=== PATIENT | male | born 1930 | race Two or more races ===

== ENCOUNTER 2017-01-27 21:38 | Inpatient (IN) | payer MEDICARE, OTHER ==
[~2017-01-27] VITALS: Ht 172.7 cm; Wt 91.2 kg
[~2017-01-27 21:38] MED LIST: ASPI81TA2 PO; CARV6.25 PO; ESOM40CA PO; GLIP5TAB3 PO; HUM10VIA5 SQ; LISI5TAB45 PO; MONT10TA22 PO; VALS1TAB4 PO
--- NOTE | 2017-01-27 22:40 | NUR ---
PT BIB FAMILY. SENT BY PMD FOR HIGH BS, BS 313. WOUND AND WEAKNESS. PT AOX3 TRINIDADIAN SPEAKING. FAMILY AT BEDSIDE TO TRANSLATE. RR EVEN AND UNLABORED. NO SOB NOTED. NAD NOTED. NO NVD AT THIS TIME. PT GOWNED AND PLACED ON MONITOR WAITING FOR MD ONEILL.
[2017-01-27 23:18] LABS: BASOPHILS % (AUTO) 0.5 % (0.0-2.0); EOSINOPHILS # (AUTO) 0.1 /CMM (0.0-0.7); EOSINOPHILS % (AUTO) 1.1 % (0.0-6.0); HEMATOCRIT 37 % (39-51); HEMOGLOBIN 12.3 g/dL (13.5-17.5); LYMPHOCYTES # (AUTO) 2.3 /CMM (0.8-4.8); LYMPHOCYTES % (AUTO) 22.4 % (20.0-44.0); MEAN CORPUSCULAR HEMOGLOBIN 31 PG (26.0-33.0); MEAN CORPUSCULAR HGB CONC 33 g/dl (31.0-36.0); MEAN CORPUSCULAR VOLUME 93 fL (80-96); MONOCYTES # (AUTO) 0.6 /CMM (0.1-1.30); MONOCYTES % (AUTO) 5.8 % (2.0-12.0); NEUTROPHILS # (AUTO) 7.3 /CMM (1.8-8.9); NEUTROPHILS % (AUTO) 70.2 % (43.0-81.0); PLATELET COUNT (AUTO) 170 /CMM (150-450); RDW COEFFICIENT OF VARIATION 14.2 (11.5-15.0); RED BLOOD CELL COUNT(AUTO) 4.01 MIL/uL (4.5-6.0); WHITE BLOOD COUNT (AUTO) 10.4 K/uL (4.3-11.0)
[2017-01-27 23:27] LABS: CALCIUM, SERUM 9.4 mg/dL (8.5-10.1); CARBON DIOXIDE 30 mmol/L (21-32); CHLORIDE 107 mmol/L (98-107); GLUCOSE 348 mg/dL (74-106); POTASSIUM 4.2 mmol/L (3.5-5.1); SODIUM SERUM 146 mmol/L (136-145); UREA NITROGEN, BLOOD 31 mg/dL (7-18)
[2017-01-27 23:30] LABS: INR 0.93 (0.87-1.13); PROTHROMBIN TIME 9.7 SECS (9.5-12.7)
[2017-01-27 23:33] LABS: TROPONIN I < 0.017 ng/mL (0.00-0.056)
--- NOTE | 2017-01-27 23:34 | NUR ---
PT TO CT.
--- NOTE | 2017-01-27 23:39 | NUR ---
CRITICAL LAB. LACTIC ACID 2.9
[2017-01-27 23:41] LABS: ALANINE AMINOTRANSFERASE 18 U/L (12-78); ALBUMIN 3.2 g/dL (3.4-5.0); ALKALINE PHOSPHATASE 118 U/L (46-116); ASPARTATE AMINOTRANSFERASE 11 U/L (15-37); BILIRUBIN,DIRECT 0.1 mg/dL (0.0-0.2); BILIRUBIN,TOTAL 0.2 mg/dL (0.2-1.0); TOTAL PROTEIN, SERUM 7.5 g/dL (6.4-8.2)
[2017-01-28] MEDS ORDERED: INSULIN REGULAR, HUMAN 100 UNIT/ML 3 ML VIAL IV ONE
--- NOTE | 2017-01-28 | NUR ---
PT RETURNED FROM CT.
[2017-01-28] MEDS ORDERED: INSULIN REGULAR, HUMAN 100 UNIT/ML 10 ML VIAL ONE (00:04)
[2017-01-28] MEDS ORDERED: CARV12.5 PO (00:14)
[2017-01-28] MEDS ORDERED: AMLO5TAB4 PO (00:14)
[2017-01-28] MEDS ORDERED: DUTA0.5C PO (00:14)
[2017-01-28] MEDS ORDERED: ROSU40TA PO (00:14)
[2017-01-28] MEDS ORDERED: FURO-144 PO (00:14)
[2017-01-28] MEDS ORDERED: TRAM50TA2 PO (00:14)
[2017-01-28] MEDS ORDERED: DOCU-25 PO (00:14)
[2017-01-28] MEDS ORDERED: FOLI1TAB16 PO (00:14)
[2017-01-28] MEDS ORDERED: TAMS-12 PO (00:14)
[2017-01-28] MEDS ORDERED: POTA8TAB8 PO (00:14)
[2017-01-28] MEDS ORDERED: CLON0.1T PO (00:14)
[2017-01-28] MEDS ORDERED: LINA5TAB PO (00:14)
--- NOTE | 2017-01-28 00:19 | NUR ---
ORDERS RECEIVED BY [employer] [facility]ANTONIO. PT ASSIGNED TO TEL [phone]
--- NOTE | 2017-01-28 00:26 | NUR ---
UNABLE TO GET URINE AT THIS TIME. DR CERDA MADE AWARE
--- NOTE | 2017-01-28 00:32 | NUR ---
REPORT GIVEN TO KWAN NEWMAN FOR CINDI.
--- NOTE | 2017-01-28 00:32 | NUR ---
ENDORSE TO RN TRENT TO COLLECT URINE.
[2017-01-28] MEDS ORDERED: LORAZEPAM INJ 2 MG/ML VIAL ONE ×2 (00:35→02:21)
[2017-01-28 00:45] VITALS: BP 147/70
--- NOTE | 2017-01-28 00:49 | NUR ---
PT TRANSPORTED TO [facility] BED 322-2 VIA GURNEY PER ACLS PROTOCOL.
--- NOTE | 2017-01-28 00:50 | NUR ---
ANALYSIS SPECIALIST INITIAL NOTES PT WAS TRANSFERRED FROM ER VIA FAMILY CAROL AT BEDSIDE TO TRANSLATE. PT IS BELARUSIAN AND BELGIAN SPEAKING ONLY. PT IS COMBATIVE AND UNCOOPERATIVE. REMOVING IVS, DIAPER AND BLANKETS. REFUSING TELE MONITOR. SITTER IS NEEDED BUT UNAVAILABLE. FAMILY IS AWARE OF SITUATION AND STATES THAT HE GETS EXTREMELY CONFUSED AND AGITATED AT NIGHT. PT IS BREATHING EVENLY AND UNLABORED ON RA, SATING WELL. BED IS IN LOW AND LOCKED POSITION, BED ALARM ON.
[2017-01-28 01:00] VITALS: BP 147/70
[2017-01-28] MEDS ORDERED: LORAZEPAM INJ 2 MG/ML VIAL IV ONE (01:00)
[2017-01-28 01:25] LABS: MAGNESIUM 1.9 mg/dL (1.8-2.4)
[2017-01-28] MEDS ORDERED: DEXTROSE 50%-WATER 50 ML DISP.SYRIN IV PRN (01:30)
[2017-01-28 01:38] LABS: THYROID STIMULATING HORMONE 2.819 uIU/mL (0.358-3.74)
--- NOTE | 2017-01-28 01:40 | NUR ---
DR WAS PAGED REGARDING PTS CONSISTENT AGITATION. 1MG ATIVAN Q8 WAS ORDERED
[2017-01-28] MEDS: LORAZEPAM INJ 2 MG/ML VIAL IV PRN (02:24)
--- NOTE | 2017-01-28 03:00 | NUR ---
PT CONTINUES TO BE RESTLESS AND AGITATED. REDIRECTION, REDUCTION OF STIMULI AND DISTRACTION WAS ATTEMPTED BUT PT CONTINUE TO ATTEMPT TO PULL OUT HIS IV AND IS REFUSING CARE
[2017-01-28 04:00] VITALS: BP 104/73
--- NOTE | 2017-01-28 06:09 | NUR ---
PAGED FOR RESTRAINTS, PT CONTINUES TO ATTEMPT TO REMOVE IV AND IS UNCOOPERATIVE AND RESTLESS. SOFT WRIST RESTRAINTS APPLIED. WILL CONTINUE TO MONITOR
[2017-01-28] MEDS: BLOOD SUGAR DIAGNOSTIC 1 EACH STRIP VI SCH ×4 (06:19→22:04)
[2017-01-28] MEDS: INSULIN REGULAR, HUMAN 100 UNIT/ML 3 ML VIAL SQ PRN ×3 (06:24→18:15)
--- NOTE | 2017-01-28 06:53 | NUR ---
MS RN CLOSING NOTES PT IS NOW IN RESTRAINTS, APPEARS CALM. BLOOD SUGAR IS 253- [phone] WERE GIVEN. BED IS IN LOW AND LOCKED POSITION, CALL LIGHT WITHIN REACH. BED ALARM IS ON. WILL ENDORSE TO DAY SHIFT.
[2017-01-28 07:12] LABS: BASOPHILS % (AUTO) 0.3 % (0.0-2.0); EOSINOPHILS # (AUTO) 0.1 /CMM (0.0-0.7); EOSINOPHILS % (AUTO) 1.4 % (0.0-6.0); HEMATOCRIT 38 % (39-51); HEMOGLOBIN 12.9 g/dL (13.5-17.5); LYMPHOCYTES # (AUTO) 2.4 /CMM (0.8-4.8); LYMPHOCYTES % (AUTO) 26.7 % (20.0-44.0); MEAN CORPUSCULAR HEMOGLOBIN 31 PG (26.0-33.0); MEAN CORPUSCULAR HGB CONC 34 g/dl (31.0-36.0); MEAN CORPUSCULAR VOLUME 92 fL (80-96); MONOCYTES # (AUTO) 0.6 /CMM (0.1-1.30); MONOCYTES % (AUTO) 7.2 % (2.0-12.0); NEUTROPHILS # (AUTO) 5.7 /CMM (1.8-8.9); NEUTROPHILS % (AUTO) 64.4 % (43.0-81.0); PLATELET COUNT (AUTO) 156 /CMM (150-450); RDW COEFFICIENT OF VARIATION 14.2 (11.5-15.0); RED BLOOD CELL COUNT(AUTO) 4.15 MIL/uL (4.5-6.0); WHITE BLOOD COUNT (AUTO) 8.8 K/uL (4.3-11.0)
[2017-01-28 07:28] LABS: ALANINE AMINOTRANSFERASE 14 U/L (12-78); ALBUMIN 3.2 g/dL (3.4-5.0); ALKALINE PHOSPHATASE 109 U/L (46-116); ASPARTATE AMINOTRANSFERASE 14 U/L (15-37); BILIRUBIN,TOTAL 0.3 mg/dL (0.2-1.0); CALCIUM, SERUM 9.3 mg/dL (8.5-10.1); CARBON DIOXIDE 32 mmol/L (21-32); CHLORIDE 103 mmol/L (98-107); CREATININE 1.9 mg/dL (0.6-1.3); GLUCOSE 238 mg/dL (74-106); POTASSIUM 3.4 mmol/L (3.5-5.1); SODIUM SERUM 141 mmol/L (136-145); TOTAL PROTEIN, SERUM 7.4 g/dL (6.4-8.2); UREA NITROGEN, BLOOD 29 mg/dL (7-18)
[2017-01-28 08:00] VITALS: BP 111/65
[2017-01-28] MEDS ORDERED: Medication Not On Formulary EA (Potassium Chloride 8 MEQ) PO SCH (09:00)
[2017-01-28] MEDS ORDERED: SILVER NITRATE APPLICATOR 1 EA BOX TP ONE (09:30)
[2017-01-28] MEDS ORDERED: LIDOCAINE 2%-EPI 1:100,000 30 ML VIAL TP ONE (09:30)
[2017-01-28] MEDS: MONTELUKAST SODIUM (10MG) 10 MG TABLET PO SCH (11:26)
[2017-01-28] MEDS: TAMSULOSIN 0.4 MG CAP.SR.24H PO SCH (11:26)
[2017-01-28] MEDS: POTASSIUM CHLORIDE 10 MEQ TABLET.SA PO SCH (11:27)
[2017-01-28] MEDS: POTASSIUM CHLORIDE 20 MEQ TAB.PRT.SR PO SCH (11:27)
[2017-01-28] MEDS: LINAGLIPTIN 5 MG TABLET PO SCH (11:27)
[2017-01-28] MEDS: FOLIC ACID 1 MG TABLET PO SCH (11:28)
[2017-01-28] MEDS: FUROSEMIDE 40 MG TABLET PO SCH (11:28)
[2017-01-28] MEDS: TRAMADOL HCL 50 MG TABLET PO SCH (11:29)
[2017-01-28] MEDS: CARVEDILOL 12.5 MG TABLET PO SCH ×2 (11:30→17:53)
[2017-01-28] MEDS: AMLODIPINE BESYLATE 5 MG TABLET PO SCH ×2 (11:30→17:53)
[2017-01-28] MEDS: DUTASTERIDE (0.5 MG) 0.5 MG CAPSULE PO SCH (11:34)
[2017-01-28] MEDS: DOCUSATE SODIUM 100 MG CAPSULE PO SCH (11:34)
[2017-01-28] MEDS: CLONIDINE HCL 0.1 MG TABLET PO SCH ×2 (13:04→21:58)
--- NOTE | 2017-01-28 14:30 | NUR ---
MS RN NOTES PATIENT AMBULATING WITH PT SEEN TOLERATING FINE. REPORTED TO BE TIRED. ONCE ON CHAIR PATIENT LOOKED PALE AND HAD AN EPISODE OF SYCOPE. ONCE PATIENT PLACED ON BED PATIENT WAS AWARE AND ALERTX1. BP CHECKED NOTED TO BE 110/65 PULSE OF 76 RESPIRATION 17 O2 SATURATION 99%. PATIENT REPORTS NO DISTRESS. STATES HE FEELS FINE BS CHECKED 152MG/DL. WILL CONTINUE TO MONITOR. DR. COLLADO PAGED WAITING FOR CALL BACK .
--- NOTE | 2017-01-28 14:45 | NUR ---
MS RN NOTES DR. COLLADO RETURNED CALL, REPORTS PATIENTS CONDITION ORDERS TO CONTINUE TO MONITOR AND PUT ELASTIC STOCKINGS ON. ORDERS NOTED AND CARRIED OUT.
[2017-01-28 16:00] VITALS: BP 121/67
--- NOTE | 2017-01-28 19:00 | NUR ---
MS BOWENS OPENING NOTES PT IN BED RESTING, PT A/O X 4, NO S/S OF DISTRESS NOTED. BREATHING EVEN AND UNLABORED, SAFETY MEASURES IN PLACE, BED LOCKED AND IN LOWEST POSITION, CALL LIGHT IN REACH. WILL CONTINUE TO MONITOR. Addendum: 01/28/17 at 2025 by YOLETTE GODINEZ RN ADDENDUM: CORRECTION PT IS A/O X 2
--- NOTE | 2017-01-28 19:09 | NUR ---
MS RN NOTES PATIENT IN BED RESTING NO SOB OR ACUTE DISTRESS NOTED. ALL DUE MEDICATIONS ADMINISTERED. ALL NEEDS MET. PATIENT ALERT, ORIENTED X1-2 CONFUSED AT TIMES. BED IN LOW LOCKED POSITION. CALL LIGHT WITHIN REACH WILL ENDORSE TO PM SHIFT CINDI.
[2017-01-28 20:00] VITALS: BP 122/49
--- NOTE | 2017-01-28 20:00 | NUR ---
DR. EDOUARD SMITH SEEN PT AT [facility] AND WRITE ORDERS OF EEG, SEIZURE PRECAUTION, NAMENDA 5 MG PO BID BUT UNABLE TO PUT ORDERS UNDER HIS NAME PER DOCTOR EDOUARD HE WILL CALL THE [facility] TOMORROW 01/29/17 HOLD HIS ORDER FOR NOW I WILL ENDORSE THIS TO THE NEXT SHIFT
--- NOTE | 2017-01-28 20:25 | NUR ---
spoke with daughter Keesha [phone]. Patient speaks Sami, he lives at home with and daughter/family. Patient has hx of CVA,COPD, s/p CABG and dementia. He ambulates with a walker and requires assistance with adl's. He has adequate DME: walker, hoSp bed, shower chair and motorized wheelchair. He receives 5hr/day [facility] caregiver and currently on service with [facility] homehealth. Has good family support. His pcp is Dr. Wagner who also does home visits. Current dc plan is SNF, daughter will talk to regarding SNF choices and will notify case management. Addendum: 01/28/17 at 2026 by DMITRI OVERTON RN Amended: Links added.
[2017-01-28] MEDS: ATORVASTATIN 40 MG TABLET PO SCH (21:58)
[2017-01-28] MEDS ORDERED: Medication Not On Formulary EA (Rosuvastatin Calcium (Crestor) 40 MG) PO SCH (22:00)
[2017-01-28] MEDS: *INSULIN REGULAR(HUMULIN R)HUM 100 UNIT/ML VIAL SQ PRN (22:07)
[2017-01-29] MEDS: CLONIDINE HCL 0.1 MG TABLET PO SCH ×4 (05:40→21:41)
[2017-01-29] MEDS: BLOOD SUGAR DIAGNOSTIC 1 EACH STRIP VI SCH ×4 (05:42→21:40)
[2017-01-29] MEDS: INSULIN REGULAR, HUMAN 100 UNIT/ML 3 ML VIAL SQ PRN ×2 (05:44→13:38)
--- NOTE | 2017-01-29 06:10 | NUR ---
TRANSFERRED TO ROOM 309-2 NO INCIDENT
--- NOTE | 2017-01-29 06:39 | NUR ---
MS RN CLOSING NOTES ASLEEP AND EASILY AWAKEN. ON ATB WITH NO A/R NOTED. HEAD OF BED ELEVATED FOR BETTER LUNG EXPANSION, TOLERATING ROOM AIR 02 SAT 99% RESPIRATIONS EVEN AND UNLABORED. IN STABLE CONDITION NO S/S OF ACUTE DISTRESS, NO COMPLAINS OF PAIN AT THIS TIME. NO COMPLAINS OF CHEST PAIN THROUGHOUT THE SHIFT. AFEBRILE, NURSING CARE RENDERED, NEEDS ATTENDED AND ANTICIPATED, KEPT CLEAN AND DRY AND COMFORTABLE. VSS. GOOD SKIN CARE PROVIDED. FREQUENT VISUAL CHECK DONE FOR SAFETY EVERY 2 HOURS. SAFE HAZARD FREE ENVIRONMENT PROVIDED. CALL LIGHT WITHIN EASY TO REACH, ON LOW BED AT ALL TIMES TO ENSURE SAFETY, WILL ENDORSE TO THE NEXT SHIFT CONTINUE PLAN OF CARE. Addendum: 01/29/17 at 0642 by YOLETTE GODINEZ RN CORRECTION: PT NOT ON ATB
--- NOTE | 2017-01-29 06:43 | NUR ---
ASSIST PATIENT REPOSITION Q2H
[2017-01-29 06:48] LABS: BASOPHILS % (AUTO) 0.3 % (0.0-2.0); EOSINOPHILS # (AUTO) 0.2 /CMM (0.0-0.7); EOSINOPHILS % (AUTO) 1.9 % (0.0-6.0); HEMATOCRIT 37 % (39-51); HEMOGLOBIN 12.2 g/dL (13.5-17.5); LYMPHOCYTES # (AUTO) 2.2 /CMM (0.8-4.8); MEAN CORPUSCULAR HEMOGLOBIN 31 PG (26.0-33.0); MEAN CORPUSCULAR HGB CONC 33 g/dl (31.0-36.0); MEAN CORPUSCULAR VOLUME 93 fL (80-96); MONOCYTES # (AUTO) 0.6 /CMM (0.1-1.30); MONOCYTES % (AUTO) 6.7 % (2.0-12.0); NEUTROPHILS % (AUTO) 67.1 % (43.0-81.0); PLATELET COUNT (AUTO) 143 /CMM (150-450); RDW COEFFICIENT OF VARIATION 13.9 (11.5-15.0); RED BLOOD CELL COUNT(AUTO) 3.96 MIL/uL (4.5-6.0)
[2017-01-29 08:00] VITALS: BP 186/71
--- NOTE | 2017-01-29 08:30 | NUR ---
MS RN RECEIVE DON BED, SLEEPING VERY CONFUSE PATIENT, LUNGS ARE CLEAR,ABDOMEN SOFT,POSITIVE BOWEL SOUND. WILL MONITOR PATIENT CONDITION.
--- NOTE | 2017-01-29 09:20 | NUR ---
MS RN WAS SEEN BY DR. ESPINOSA W/ ORDERS MADES AND CARRIED OUT.
[2017-01-29] MEDS: DOCUSATE SODIUM 100 MG CAPSULE PO SCH (09:29)
[2017-01-29] MEDS: LINAGLIPTIN 5 MG TABLET PO SCH (09:29)
[2017-01-29] MEDS: POTASSIUM CHLORIDE 10 MEQ TABLET.SA PO SCH (09:29)
[2017-01-29] MEDS: FOLIC ACID 1 MG TABLET PO SCH (09:29)
[2017-01-29] MEDS: FUROSEMIDE 40 MG TABLET PO SCH (09:29)
[2017-01-29] MEDS: POTASSIUM CHLORIDE 20 MEQ TAB.PRT.SR PO SCH (09:29)
[2017-01-29] MEDS: DUTASTERIDE (0.5 MG) 0.5 MG CAPSULE PO SCH (09:29)
[2017-01-29] MEDS: TAMSULOSIN 0.4 MG CAP.SR.24H PO SCH (09:29)
[2017-01-29] MEDS: AMLODIPINE BESYLATE 5 MG TABLET PO SCH ×2 (09:31→18:51)
[2017-01-29] MEDS: TRAMADOL HCL 50 MG TABLET PO SCH (09:31)
[2017-01-29] MEDS: CARVEDILOL 12.5 MG TABLET PO SCH ×2 (09:31→18:52)
[2017-01-29] MEDS: MONTELUKAST SODIUM (10MG) 10 MG TABLET PO SCH (09:49)
--- NOTE | 2017-01-29 10:00 | NUR ---
MS KWAN BREAKFAST SERVED,DUE MEDS GIVEN,TOLERATED WELL , CRUSH MEDS W/ APPLE SAUCE.
--- NOTE | 2017-01-29 11:23 | NUR ---
WOUND CARE CONSULT: PT FOLLOWED BY SURGICAL TEAM FOR SACRAL ULCER. DEFER TO SURGICAL TEAM FOR WOUND TREATMENT PLAN. FIRST STEP MATTRESS PREVIOUSLY ORDERED AND TO BE PLACED. DISCUSSED SKIN PROTECTION MEASURES WITH NURSING STAFF. ALL SKIN PROTECTION MEASURES IN PLACE. WILL SEE PRN. STEPHENS IN AGREEMENT WITH PLAN OF CARE.
[2017-01-29] MEDS ORDERED: Z GUARD REMEDY 2 OZ OINT TP PRN (11:30)
[2017-01-29] MEDS: LORAZEPAM INJ 2 MG/ML VIAL IV PRN (15:56)
[2017-01-29 16:00] VITALS: BP 104/73
--- NOTE | 2017-01-29 16:00 | NUR ---
MS DIE SINKER APPRENTICE AT BEDSIDE, BEGINNING TO AGITATE, ATIVAN 1MG IV WAS GIVEN. CLONIDINE PO GIVEN FOR HIGH B/P. WILL RECHECK PATIENT.
--- NOTE | 2017-01-29 16:20 | NUR ---
MS RN PATIENT TRANSFERRED TO ROOM 324 BED 2, TO AVAIL SITTER.
--- NOTE | 2017-01-29 17:00 | NUR ---
ms rn inserted a new g22 iv site at right forearm w/ good venous return.
--- NOTE | 2017-01-29 18:00 | NUR ---
MS KWAN UNABLE TO CARRYOUT DR ALETHA CHAN DUE TO HE IS NOT IN THE SYSTEM.
--- NOTE | 2017-01-29 18:16 | NUR ---
ms rn on bed,no distress noted, patient is w/ sitter,now.
[2017-01-29] MEDS: HYDROGEL DRESSING 90 GM TUBE TP SCH (18:51)
[2017-01-29] MEDS: *INSULIN REGULAR(HUMULIN R)HUM 100 UNIT/ML VIAL SQ PRN ×2 (18:57→21:40)
--- NOTE | 2017-01-29 19:00 | NUR ---
MS RN OPENING NOTES IN BED, RESTING, PT A/O X 1, NO S/S OF DISTRESS NOTED. STABLE CONDITION. BREATHING EVEN AND UNLABORED, SAFETY MEASURES IN PLACE, BED LOCKED AND IN LOWEST POSITION, CALL LIGHT IN REACH. WILL CONTINUE TO MONITOR.
[2017-01-29] MEDS: Z GUARD REMEDY 2 OZ OINT TP SCH (19:01)
[2017-01-29 19:38] VITALS: BP 157/67
[2017-01-29 20:00] VITALS: BP 150/69
[2017-01-29] MEDS: ATORVASTATIN 40 MG TABLET PO SCH (21:40)
[2017-01-29] MEDS: INSULIN DETEMIR 100 UNIT/ML CARTRIDGE SQ SCH (21:49)
[2017-01-30] MEDS: CLONIDINE HCL 0.1 MG TABLET PO SCH ×3 (05:41→21:24)
[2017-01-30] MEDS: BLOOD SUGAR DIAGNOSTIC 1 EACH STRIP VI SCH ×4 (05:44→21:22)
[2017-01-30] MEDS: INSULIN REGULAR, HUMAN 100 UNIT/ML 3 ML VIAL SQ PRN ×3 (05:48→17:08)
--- NOTE | 2017-01-30 06:08 | NUR ---
UNABLE TO INPUT ORDERS OF EEG CALLED RADIOLOGY AND TOLD ME THAT IT NEEDS TO BE ELECTRONICALLY IN THE SYSTEM WHOEVER DR WHO ORDERS IT EVEN THOUGH I ASKED THEM IF I COULD GIVE THE PHYSICIAN ORDER BY PAPER. DR. POMPA IS NOT STILL REGISTERED IN THE SYSTEM. NEEDS TO F/U AT AM. I WILL ENDORSE THIS TO THE NEXT SHIFT Addendum: 01/30/17 at 0611 by YOLETTE GODINEZ RN ADDENDUM: DR. POMPA WANTS HIS UNDER HIS NAME
--- NOTE | 2017-01-30 06:35 | NUR ---
MS RN CLOSING NOTES RESTING IN BED ASLEEP AND EASILY AWAKEN. SEIZURE PRECAUTION, HOB ELEVATED FOR BETTER LUNG EXPANSION AND GOOD CIRCULATION. IN STABLE CONDITION NO S/S OF ACUTE DISTRESS, TOLERATING ROOM AIR 02 SAT 95% RESPIRATIONS EVEN AND UNLABORED. AFEBRILE, ASSISTED REPOSITION Q2H. NURSING CARE RENDERED, NEEDS ATTENDED AND ANTICIPATED, KEPT CLEAN AND DRY AND COMFORTABLE. TX ORDERED. GOOD SKIN CARE PROVIDED. FREQUENT VISUAL CHECK DONE FOR SAFETY EVERY 2 HOURS. SAFE HAZARD FREE ENVIRONMENT PROVIDED. CALL LIGHT WITHIN EASY TO REACH, ON LOW BED AT ALL TIMES TO ENSURE SAFETY, WILL ENDORSE TO THE NEXT SHIFT CONTINUE PLAN OF CARE.
--- NOTE | 2017-01-30 07:48 | NUR ---
MS/RN OPENING NOTE PATIENT RECEIVED IN BED IN STABLE CONDITION. A/O X 1. NO SIGNS OF ACUTE DISTRESS. NO COMPLAIN OF PAIN OR DISCOMFORT. ALL NEEDS ATTENDED TO 1:1 SITTER AT BEDSIDE. ALL NEEDS ATTENDED TO. CALL LIGHT WITHIN REACH. WILL CONTINUE TO MONITOR TO ENSURE SAFETY.
[2017-01-30] MEDS: LORAZEPAM INJ 2 MG/ML VIAL IV PRN (09:41)
[2017-01-30] MEDS: HYDROGEL DRESSING 90 GM TUBE TP SCH (09:41)
[2017-01-30] MEDS: FUROSEMIDE 40 MG TABLET PO SCH (09:41)
[2017-01-30] MEDS: FOLIC ACID 1 MG TABLET PO SCH (09:41)
[2017-01-30] MEDS: MEMANTINE HCL 5 MG TABLET PO SCH ×2 (09:41→17:05)
[2017-01-30] MEDS: TAMSULOSIN 0.4 MG CAP.SR.24H PO SCH (09:41)
[2017-01-30] MEDS: AMLODIPINE BESYLATE 5 MG TABLET PO SCH ×2 (09:42→17:06)
[2017-01-30] MEDS: CARVEDILOL 12.5 MG TABLET PO SCH ×2 (09:42→17:06)
[2017-01-30] MEDS: MONTELUKAST SODIUM (10MG) 10 MG TABLET PO SCH (09:42)
[2017-01-30] MEDS: DOCUSATE SODIUM 100 MG CAPSULE PO SCH (09:42)
[2017-01-30] MEDS: DUTASTERIDE (0.5 MG) 0.5 MG CAPSULE PO SCH (09:42)
[2017-01-30] MEDS: POTASSIUM CHLORIDE 20 MEQ TAB.PRT.SR PO SCH (09:42)
[2017-01-30] MEDS: TRAMADOL HCL 50 MG TABLET PO SCH (09:43)
[2017-01-30] MEDS: LINAGLIPTIN 5 MG TABLET PO SCH (09:43)
[2017-01-30] MEDS: Z GUARD REMEDY 2 OZ OINT TP SCH (09:44)
[2017-01-30 12:31] VITALS: BP 164/78
[2017-01-30 12:55] VITALS: BP 138/67
--- NOTE | 2017-01-30 15:28 | NUR ---
MS/RN SPOKE WITH DR ESPINOSA SPOKE WITH DR ESPINOSA AND MADE AWARE PATIENT HAS 1:1 SITTER AT BEDSIDE, NOTED WITH NO EPISODES OF SELF INJURIES, OR SPITTING OUT MEDS DURING RELIEVE OF RESTRAINTS. TOOK MEDICATIONS AND TOLERATED WELL. ALL NEEDS ATTENDED TO. PER DR FRANCISCA COSTA ACUTE MEDICAL RESTRAINTS ORDER.
[2017-01-30 16:21] VITALS: BP 147/67
--- NOTE | 2017-01-30 18:29 | NUR ---
MS/RN CLOSING NOTE PATIENT IN BED IN STABLE CONDITION. A/O X 1. NO SIGNS OF ACUTE DISTRESS. NO COMPLAIN OF PAIN OR DISCOMFORT. ALL NEEDS ATTENDED TO. 1:1 SITTER AT BEDSIDE. CALL LIGHT WITHIN REACH. WILL ENDORSE TO NEXT SHIFT FOR CONTINUITY OF CARE.
--- NOTE | 2017-01-30 19:00 | NUR ---
MS RN OPENING NOTES IN BED, WITH SITTER, PT A/O X 1, NO S/S OF DISTRESS NOTED. STABLE CONDITION. BREATHING EVEN AND UNLABORED, SAFETY MEASURES IN PLACE, BED LOCKED AND IN LOWEST POSITION, CALL LIGHT IN REACH. WILL CONTINUE TO MONITOR.
[2017-01-30 20:00] VITALS: BP 152/64
[2017-01-30] MEDS: ATORVASTATIN 40 MG TABLET PO SCH (21:23)
[2017-01-30] MEDS: INSULIN DETEMIR 100 UNIT/ML CARTRIDGE SQ SCH (21:25)
[2017-01-30] MEDS: *INSULIN REGULAR(HUMULIN R)HUM 100 UNIT/ML VIAL SQ PRN (21:30)
[2017-01-31] MEDS: CLONIDINE HCL 0.1 MG TABLET PO SCH ×3 (05:22→21:00)
[2017-01-31] MEDS: BLOOD SUGAR DIAGNOSTIC 1 EACH STRIP VI SCH ×4 (05:23→22:00)
[2017-01-31] MEDS: INSULIN REGULAR, HUMAN 100 UNIT/ML 3 ML VIAL SQ PRN ×3 (05:27→17:52)
--- NOTE | 2017-01-31 06:35 | NUR ---
MS RN CLOSING NOTES IN BED ASLEEP AND EASILY AWAKEN, HOB ELEVATED, TOLERATING ROOM AIR 02 SAT 96% RESPIRATIONS EVEN AND UNLABORED. PT ON SEIZURE PRECAUTION NO SEIZURE ACTIVITY NOTED THROUGHOUT THE SHIFT, IN STABLE CONDITION NO S/S OF ACUTE DISTRESS, AFEBRILE, NURSING CARE RENDERED, NEEDS ATTENDED AND ANTICIPATED, KEPT CLEAN AND DRY AND COMFORTABLE. 1:1 SITTER AT BEDSIDE, TX ORDERED. GOOD SKIN CARE PROVIDED.ASSISTED REPOSITION Q2H. FREQUENT VISUAL CHECK DONE FOR SAFETY EVERY 2 HOURS. SAFE HAZARD FREE ENVIRONMENT PROVIDED. CALL LIGHT WITHIN EASY TO REACH, ON LOW BED AT ALL TIMES TO ENSURE SAFETY, WILL ENDORSE TO THE NEXT SHIFT CONTINUE PLAN OF CARE.
--- NOTE | 2017-01-31 07:47 | NUR ---
MS/RN OPENING NOTE PATIENT RECEIVED IN BED IN STABLE CONDITION. A/O X 1. PORTUGUESE SPEAKING AND UNDERSTANDING ONLY. NO SIGNS OF ACUTE DISTRESS. NO COMPLAIN OF PAIN OR DISCOMFORT. ALL NEEDS ATTENDED TO. CALL LIGHT WITHIN REACH. 1:1 SITTER AT BEDSIDE. WILL CONTINUE TO MONITOR TO ENSURE SAFETY.
--- NOTE | 2017-01-31 08:53 | NUR ---
MS/RN COREG HELD COREG HELD SECONDARY PATIENT HR LESS THAN 60
[2017-01-31] MEDS: CARVEDILOL 12.5 MG TABLET PO SCH ×2 (09:00→16:07)
[2017-01-31] MEDS: TAMSULOSIN 0.4 MG CAP.SR.24H PO SCH (09:00)
[2017-01-31] MEDS: FUROSEMIDE 40 MG TABLET PO SCH (09:00)
[2017-01-31] MEDS: DOCUSATE SODIUM 100 MG CAPSULE PO SCH (09:00)
[2017-01-31] MEDS: MONTELUKAST SODIUM (10MG) 10 MG TABLET PO SCH (09:00)
[2017-01-31] MEDS: POTASSIUM CHLORIDE 20 MEQ TAB.PRT.SR PO SCH (09:00)
[2017-01-31] MEDS: DUTASTERIDE (0.5 MG) 0.5 MG CAPSULE PO SCH (09:00)
[2017-01-31] MEDS: LINAGLIPTIN 5 MG TABLET PO SCH (09:00)
[2017-01-31] MEDS: FOLIC ACID 1 MG TABLET PO SCH (09:00)
[2017-01-31] MEDS: MEMANTINE HCL 5 MG TABLET PO SCH ×2 (09:01→16:07)
[2017-01-31] MEDS: TRAMADOL HCL 50 MG TABLET PO SCH (09:01)
[2017-01-31] MEDS: AMLODIPINE BESYLATE 5 MG TABLET PO SCH ×2 (09:02→16:07)
[2017-01-31] MEDS: Z GUARD REMEDY 2 OZ OINT TP SCH (09:03)
[2017-01-31] MEDS: HYDROGEL DRESSING 90 GM TUBE TP SCH (09:03)
[2017-01-31] MEDS: LORAZEPAM INJ 2 MG/ML VIAL IV PRN (15:20)
--- NOTE | 2017-01-31 18:18 | NUR ---
MS/RN CLOSING NOTE PATIENT IN BED IN STABLE CONDITION. A/O X 1. WITH EPISODES OF CONFUSION AND FORGETFULNESS. HUNGARIAN SPEAKING. ALL NEEDS ATTENDED TO. 1:1 SITTER AT BEDSIDE. CALL LIGHT WITHIN REACH. WILL ENDORSE TO NEXT SHIFT FOR CONTINUITY OF CARE.
[2017-01-31 18:50] VITALS: BP 155/65
--- NOTE | 2017-01-31 19:02 | NUR ---
MS/RN SEEN BY DR ESPINOSA PATIENT SEEN BY DR ESPINOSA WITH ORDERS FOR TRIPLE AT OINTMENT BEHIND EARS Q 6 HRS FOR DRYNESS.
[2017-01-31] MEDS ORDERED: *INS REG SQ (19:15)
[2017-01-31] MEDS ORDERED: DUTA0.5C2 PO (19:15)
[2017-01-31] MEDS ORDERED: POTA20TA83 PO (19:15)
[2017-01-31] MEDS ORDERED: MEMA5TAB PO (19:15)
[2017-01-31] MEDS ORDERED: TRAM50TA2 PO (19:15)
[2017-01-31] MEDS ORDERED: FOLI1TAB16 PO (19:15)
[2017-01-31] MEDS ORDERED: LORA2VIA11 PO (19:15)
[2017-01-31] MEDS ORDERED: NEOM15OI3 TP (19:15)
[2017-01-31] MEDS ORDERED: MONT10TA22 PO (19:15)
[2017-01-31] MEDS ORDERED: INSU100I19 SQ (19:15)
[2017-01-31] MEDS ORDERED: TAMS-12 PO (19:15)
[2017-01-31] MEDS ORDERED: Hydrogel Dressing TP (19:15)
[2017-01-31] MEDS ORDERED: FURO40TA5 PO (19:15)
[2017-01-31] MEDS ORDERED: CARV12.52 PO (19:15)
[2017-01-31] MEDS ORDERED: CLON0.1T14 PO (19:15)
[2017-01-31] MEDS ORDERED: LINA5TAB PO (19:15)
[2017-01-31] MEDS ORDERED: DOCU-25 PO (19:15)
[2017-01-31 20:00] VITALS: BP 128/76
[2017-01-31] MEDS: ATORVASTATIN 40 MG TABLET PO SCH (22:00)
[2017-01-31] MEDS: INSULIN DETEMIR 100 UNIT/ML CARTRIDGE SQ SCH (22:00)
[2017-02-01] MEDS: NEOMY SULF/BACITRAC ZN/POLY 15 GM TUBE TP SCH ×3 (00:41→12:35)
[2017-02-01] MEDS: *INSULIN REGULAR(HUMULIN R)HUM 100 UNIT/ML VIAL SQ PRN (00:47)
[2017-02-01] MEDS: CLONIDINE HCL 0.1 MG TABLET PO SCH ×2 (05:00→12:37)
[2017-02-01] MEDS: BLOOD SUGAR DIAGNOSTIC 1 EACH STRIP VI SCH ×3 (07:41→17:05)
--- NOTE | 2017-02-01 08:00 | NUR ---
RN NOTES RECEIVED A PATIENT IN THE ROOM A/O X1, CONFUSED, IRRITABLE, NEEDY, [place] SPEAKER, SITTING IN THE BED. ENCOURAGED TO EXPRESS FEELINGS AND CONCERNS, NEEDS ATTENDED AND ANTICIPATED, PATIENT NEED REDIRECTION. PATIENT MED COMPLIANT AFTER TEACHING IMPORTANT OF TAKING MEDICATION, ASSIST EATING BREAKFAST. PATIENT HAS NO RESPIRATORY DISTRESS, NO C/O PAIN. 1:1 SITTER NEXT TO THE BED FOR SAFETY. CALL LIGHT WITHIN TO REACH. CONTINUED MONITORING.
[2017-02-01] MEDS: TAMSULOSIN 0.4 MG CAP.SR.24H PO SCH (08:56)
[2017-02-01] MEDS: FOLIC ACID 1 MG TABLET PO SCH (08:56)
[2017-02-01] MEDS: MEMANTINE HCL 5 MG TABLET PO SCH (08:56)
[2017-02-01] MEDS: FUROSEMIDE 40 MG TABLET PO SCH (08:57)
[2017-02-01] MEDS: POTASSIUM CHLORIDE 20 MEQ TAB.PRT.SR PO SCH (08:57)
[2017-02-01] MEDS: MONTELUKAST SODIUM (10MG) 10 MG TABLET PO SCH (08:57)
[2017-02-01] MEDS: LINAGLIPTIN 5 MG TABLET PO SCH (08:57)
[2017-02-01] MEDS: CARVEDILOL 12.5 MG TABLET PO SCH (08:57)
[2017-02-01] MEDS: AMLODIPINE BESYLATE 5 MG TABLET PO SCH (08:58)
[2017-02-01] MEDS: TRAMADOL HCL 50 MG TABLET PO SCH (08:58)
[2017-02-01] MEDS: DOCUSATE SODIUM 100 MG CAPSULE PO SCH (08:58)
[2017-02-01] MEDS: Z GUARD REMEDY 2 OZ OINT TP SCH (08:59)
[2017-02-01] MEDS: HYDROGEL DRESSING 90 GM TUBE TP SCH (08:59)
[2017-02-01] MEDS: DUTASTERIDE (0.5 MG) 0.5 MG CAPSULE PO SCH (09:13)
--- NOTE | 2017-02-01 12:00 | NUR ---
RN NOTES PATIENT SITTING IN THE CHAIR WITH ASSIST OF ADULT SECONDARY EDUCATION INSTRUCTOR WATCHING TV, BS-219 MG/DL NO COVERAGE GIVEN, BECAUSE PATIENT REFUSED LUNCH, V/S TAKE, SCHEDULED MEDICATION ADMINISTERED, NO ACUTE DISTRESS, NO RESPIRATORY DISTRESS, ALSO PATIENT REFUSED PAIN AT THIS TIME. NEEDS ATTENDED AND ANTICIPATED, ENCOURAGED TO INCREASE FLUID INTAKE. CALL LIGHT WITHIN TO REACH, SAFETY PRECAUTION MAINTAINED ALL THE TIME. PATIENT GOING TO D/C SNF PER Dr COLLADO. CONTINUED MONITORING.
[2017-02-01 12:37] VITALS: BP 135/55
--- NOTE | 2017-02-01 13:59 | NUR ---
RN NOTE PATIENT WITH PT AT THIS TIME. V/S STABLE BP- 124/59, P-73, NO RESPIRATORY DISTRESS, NO C/O PAIN, PATIENT WALK FROM BED TO THE HALLWAY WITH WALKER, AND HELP OF 2 PT. PATIENT SITTING IN THE CHAIR AGAIN, NO RESPIRATORY DISTRESS. 1;1 SITTER NEXT TO THE BED FOR SAFETY, CALL LIGHT WITHIN TO REACH, CONTINUED MONITORING. ENCOURAGED INCREASE FLUID INTAKE.
--- NOTE | 2017-02-01 17:06 | NUR ---
RN NOTES PATIENT DISCHARGE AT THIS TIME GOING [facility]. PATIENT A/O X1, CONFUSED, BUT COOPERATIVE, BS-265 MG/DL, PATIENT V/S STABLE, MED COMPLIANT, NO C/O PAIN, MEDICALLY STABLE. MED RECONCILIATION, AND DISCHARGE ORDER REVIEWED AND EXPLAINED TO. REPORT GIVEN [facility] RN REJI. RN VERBALIZED UNDERSTANDING. PATIENT REFUSED SIGN PAPERWORK, AND REFUSED PICTURE TO BE TAKEN. BELONGING RETURNED BACK TO THE PATIENT. SON NAME JENNIFFER NEXT TO THE BED DURING DISCHARGE. PATIENT COMMERCIAL REAL ESTATE AGENT BY AMBULANCE.
== END 2017-02-01 17:00 | DRG 264 ==
LOC: ER 21:42 → TELE 01-28 00:47 → MED 01-28 12:33
PROVIDERS: ADMIT Family Medicine; ATTEND Family Medicine
PROC: 0JB70ZZ Excision of Back Subcutaneous Tissue and Fascia, Open Approach (ICD-10-PCS; principal; 2017-01-28)
DX: I13.0 Hypertensive heart and chronic kidney disease with heart failure and stage 1 through stage 4 chronic kidney disease, or unspecified chronic kidney disease (principal); L89.154 Pressure ulcer of sacral region, stage 4; E87.2 Acidosis; E11.22 Type 2 diabetes mellitus with diabetic chronic kidney disease; E11.42 Type 2 diabetes mellitus with diabetic polyneuropathy; E11.51 Type 2 diabetes mellitus with diabetic peripheral angiopathy without gangrene; R13.10 Dysphagia, unspecified; I27.20 Pulmonary hypertension, unspecified; I50.43 Acute on chronic combined systolic (congestive) and diastolic (congestive) heart failure; N18.4 Chronic kidney disease, stage 4 (severe); D63.1 Anemia in chronic kidney disease; E78.5 Hyperlipidemia, unspecified; I25.10 Atherosclerotic heart disease of native coronary artery without angina pectoris; Z86.73 Personal history of transient ischemic attack (TIA), and cerebral infarction without residual deficits; Z87.891 Personal history of nicotine dependence; Z95.2 Presence of prosthetic heart valve; Z95.1 Presence of aortocoronary bypass graft; Z79.4 Long term (current) use of insulin; R29.6 Repeated falls; M81.0 Age-related osteoporosis without current pathological fracture; K21.9 Gastro-esophageal reflux disease without esophagitis; J44.9 Chronic obstructive pulmonary disease, unspecified; R15.9 Full incontinence of feces; R32 Unspecified urinary incontinence; R53.1 Weakness; Z98.890 Other specified postprocedural states; L98.8 Other specified disorders of the skin and subcutaneous tissue; F02.80 Dementia in other diseases classified elsewhere, unspecified severity, without behavioral disturbance, psychotic disturbance, mood disturbance, and anxiety; F29 Unspecified psychosis not due to a substance or known physiological condition; G30.9 Alzheimer's disease, unspecified; M25.78 Osteophyte, vertebrae; M45.5 Ankylosing spondylitis of thoracolumbar region; R56.9 Unspecified convulsions; R26.9 Unspecified abnormalities of gait and mobility; S06.5X0S Traumatic subdural hemorrhage without loss of consciousness, sequela; X58.XXXS Exposure to other specified factors, sequela
CPT/HCPCS: 36415; 70450-TC; 71010-TC; 72080-TC; 72170-TC; 73560-TC; 76700-TC; 76870-TC; 80048-TC; 80053-TC; 80076-TC; 82378; 82962-TC; 83540-TC; 83605-TC; 83735-TC; 84443-TC; 84484-TC; 85025-TC; 85730-TC; 87040-TC; 93307-TC; 93880-TC; 95819-TC; 97116-TC; 97530-TC; A4606; A6248; A6403; J1815; J2060; J3490; Z7610